=== PATIENT | female | born 1985 | race Asian ===

== ENCOUNTER → 2024-08-25 | Outpatient (CLI) | payer BC ==
[2024-08-25 07:53] LABS: BASOPHILS % 0.9 % (0.0-2.0); CHLORIDE 101 mEq/L (98-107); EOSINOPHILS % 2.3 % (0.0-5.0); HEMATOCRIT. 43.4 % (36.0-48.0); HEMOGLOBIN. 14.3 g/dL (12.0-16.0); LYMPHOCYTES % 35.3 % (20.0-50.0); MEAN CORPUSCULAR HEMOGLOBIN 29.2 pg (28.0-32.0); MEAN CORPUSCULAR VOLUME 88.7 fL (81.0-99.0); MONOCYTES % 5.6 % (2.0-8.0); NEUTROPHILS % 55.9 % (40.0-76.0); PLATELET 239 x1000/uL (130-400); RED BLOOD CELL COUNT 4.89 mill/uL (4.2-5.4); RED CELL DISTRIBUTION WIDTH 13.3 % (11.6-14.6); SODIUM 139 mEq/L (136-145); WHITE BLOOD COUNT 6.9 x1000/uL (4.5-11.0)
[2024-08-25 07:54] LABS: CALCIUM 10.1 mg/dL (8.7-10.4); CARBON DIOXIDE 28 mEq/L (21-32)
[2024-08-25 07:59] LABS: CREATININE 0.6 mg/dL (0.6-1.0); GLUCOSE 130 mg/dL (70-105); TRIGLYCERIDE 236 mg/dL (0-150); UREA NITROGEN BLOOD 8 mg/dL (9-23)
[2024-08-25 08:00] LABS: ALANINE AMINOTRANSFERASE 88 IU/L (10-49); ASPARTATE AMINOTRANSFERASE 47 IU/L (<34); LDL CHOLESTEROL 79 mg/dL (5-100)
[2024-08-25 08:01] LABS: ALBUMIN 4.8 g/dL (3.2-4.8); BILIRUBIN TOTAL 0.7 mg/dL (0.1-1.0); CHOLESTEROL 204 mg/dL (<200); HDL CHOLESTEROL 48 mg/dL (>65); PROTEIN TOTAL 7.9 g/dL (6.0-8.3)
[2024-08-25 08:02] LABS: THYROID STIMULATING HORMONE 2.08 uIU/mL (0.55-4.78)
[2024-08-25 08:10] LABS: CLARITY URINE CLEAR (CLEAR); COLOR URINE YELLOW (YELLOW); GLUCOSE URINE NEGATIVE (NEGATIVE); KETONES URINE NEGATIVE (NEGATIVE); LEUKOCYTE ESTERASE URINE NEGATIVE (NEGATIVE); NITRITE URINE NEGATIVE (NEGATIVE); OCCULT BLOOD URINE 1+ (NEGATIVE); PROTEIN URINE NEGATIVE (NEGATIVE); UROBILINOGEN URINE 0.2 E.U./dL (0.2-1.0)
[2024-08-25 08:59] LABS: MUCUS URINE TRACE /lpf (< = 2+); RBC URINE 0-2 /hpf (0-2); SQUAMOUS EPITHELIAL CELL URINE RARE /lpf (RARE/1+)
[2024-08-25 09:00] LABS: BACTERIA URINE TRACE
[2024-08-25 09:01] LABS: WBC URINE NONE SEEN /hpf (0-2)
== END | disposition home or self-care (01) ==
LOC: LAB 06:44
DX: Z00.00 Encounter for general adult medical examination without abnormal findings (principal)
CPT/HCPCS: 36415; 80053; 80061; 81003; 82306; 83036; 84443; 85025